=== PATIENT | male | born 1975 | race Caucasian/White ===

== ENCOUNTER 2018-11-05 02:30 | Emergency (ER) | payer OTHER ==
[~2018-11-05] VITALS: Ht 180.3 cm; Wt 69.9 kg
[2018-11-05] MEDS ORDERED: PROMETH-CODEIN 65 ML PO (03:30)
[2018-11-05] MEDS ORDERED: ZITHROMAX500 MG PO (03:30)
[2018-11-05] MEDS ORDERED: TESSALON PERLE100 M1 PO (03:30)
== END 2018-11-05 03:45 | disposition home or self-care (01) ==
LOC: ER 02:30
DX: J04.0 Acute laryngitis (principal)